=== PATIENT | male | born 1945 | race Caucasian/White ===

== ENCOUNTER 2021-07-18 07:27 | Emergency (ER) | payer MEDICARE, SELFPAY ==
[~2021-07-18] VITALS: Ht 172.7 cm; Wt 77.1 kg
[2021-07-18 07:28] VITALS: BP_SYST 136
--- NOTE | 2021-07-18 07:28 | NUR ---
Placed in room 4 . Placed on cardiac technician, blood pressure machine and pulse oximeter. To gown for exam. Side rails up.
--- NOTE | 2021-07-18 07:29 | NUR ---
Pt bib ambulance with complaint of syncopal episode this morning getting out of bed. Pt has small abrasion to top of the head. Pt states took him 10 minutes to get off the floor. Pt is from home. Pt denies pain. No trauma noted. VSS no distress at this time. Attached to monitor [facility] breathing is even and unlabored.
--- NOTE | 2021-07-18 07:30 | NUR ---
KALI Barry at bedside examining patient.
--- NOTE | 2021-07-18 07:53 | NUR ---
Lab at bedside.
--- NOTE | 2021-07-18 08:06 | NUR ---
Patient transported to radiology via wheelchair, accompanied by tech.
[2021-07-18 08:13] LABS: BASOPHILS % (AUTO) 0.3 % (0.0-2.0); EOSINOPHILS % (AUTO) 0.2 % (0.0-4.0); HEMATOCRIT 39.8 % (36-54); HEMOGLOBIN 13.1 g/dL (14.0-18.0); LYMPHOCYTES # (AUTO) 0.7 K/uL (1.0-5.5); LYMPHOCYTES % (AUTO) 4.4 % (20.5-51.5); MEAN CORPUSCULAR HEMOGLOBIN 26 pg (27-31); MEAN CORPUSCULAR HGB CONC 33 % (32-36); MEAN CORPUSCULAR VOLUME 80 fL (79.0-98.0); MONOCYTES # (AUTO) 0.8 K/uL (0.0-1.0); MONOCYTES % (AUTO) 4.9 % (1.7-9.3); NEUTROPHILS # (AUTO) 14.6 K/uL (1.8-7.7); NEUTROPHILS % (AUTO) 90.2 % (40.0-70.0); PLATELET COUNT (AUTO) 283 K/uL (130-430); RED BLOOD CELL COUNT(AUTO) 4.95 MIL/uL (4.2-6.2); RED CELL DISTRIBUTION WIDTH 15.4 % (9.0-15.0); WHITE BLOOD COUNT (AUTO) 16.1 K/uL (4.8-10.8)
[2021-07-18] MEDS ORDERED: LOSA25TA3 PO (08:13)
[2021-07-18] MEDS ORDERED: GLU500 PO (08:13)
[2021-07-18] MEDS ORDERED: CLOP75TA32 PO (08:13)
--- NOTE | 2021-07-18 08:13 | NUR ---
Medication reconciliation completed with information provided by Patient. Any prior medication reconciliation on file was reviewed and corrected.
--- NOTE | 2021-07-18 08:27 | NUR ---
Pt back from CT reattached to monitor.
--- NOTE | 2021-07-18 08:34 | NUR ---
X-ray at bedside.
[2021-07-18 08:48] LABS: ANION GAP 10 (5-15); CALCIUM 9.1 mg/dL (8.4-11.0); CHLORIDE 101 mmol/L (98-107); CREATININE 0.82 mg/dL (0.55-1.30); GLUCOSE 175 mg/dL (70-99); POTASSIUM 3.9 mmol/L (3.5-5.1); SODIUM SERUM 136 mmol/L (136-145); UREA NITROGEN, BLOOD 11 mg/dL (8-21)
[2021-07-18 08:51] LABS: PROTHROMBIN TIME 10.2 SECS (9.5-12.5)
[2021-07-18 08:54] LABS: ALANINE AMINOTRANSFERASE 31 U/L (12-78); ALBUMIN 3.4 g/dL (3.4-4.8); ASPARTATE AMINOTRANSFERASE 27 U/L (10-37); TOTAL BILIRUBIN 0.7 mg/dL (0.0-1.0)
[2021-07-18 09:05] LABS: ALCOHOL, BLOOD < 3 mg/dL (<10)
--- NOTE | 2021-07-18 09:05 | NUR ---
Pt given cup of water.
--- NOTE | 2021-07-18 09:40 | NUR ---
Family at bedside.
--- NOTE | 2021-07-18 09:47 | NUR ---
Pt given sandwich and water.
--- NOTE | 2021-07-18 10:07 | NUR ---
Covid swab collected and sent to lab.
[2021-07-18] MEDS ORDERED: ATOR-1 PO (10:13)
[2021-07-18] MEDS ORDERED: ASPI-1155 PO (10:13)
[2021-07-18] MEDS ORDERED: FLUT1DIS5 IH (10:13)
[2021-07-18] MEDS ORDERED: cefTRIAXone 1 GM in D5W 50 ML IV ONE (11:15)
[2021-07-18] MEDS ORDERED: NACL 0.9% 1,000 ML IV ONE ×2 (11:15→14:00)
[2021-07-18] MEDS ORDERED: cefTRIAXone 1 GM VIAL ONE (11:23)
--- NOTE | 2021-07-18 11:33 | NUR ---
Pt family brought emmanuel dockery al for pt. Pt eating tolerating well. No distress noted.
--- NOTE | 2021-07-18 11:38 | NUR ---
Urine collected and sent to lab.
[2021-07-18 11:59] LABS: BILIRUBIN,URINE NEGATIVE (NEGATIVE); BLOOD, URINE NEGATIVE (NEGATIVE); COLOR,URINE YELLOW (YELLOW); GLUCOSE,URINE NEGATIVE (NEGATIVE); KETONES,URINE NEGATIVE (NEGATIVE); LEUKOCYTE ESTERASE ,URINE NEGATIVE (NEGATIVE); NITRITE, URINE NEGATIVE (NEGATIVE); PH,URINE 8.5 (5.0-8.0); PROTEIN URINE NEGATIVE (NEGATIVE)
--- NOTE | 2021-07-18 12:01 | NUR ---
Spoke with [facility] () to update on pt status. [id number].
[2021-07-18 12:06] LABS: CLARITY/URINE CLEAR (CLEAR)
[2021-07-18 12:33] LABS: BARBITURATE, URINE NEGATIVE (NEG <=200); BENZODIAZEPINE, URINE NEGATIVE (NEG <=150); CANNABINOID, URINE NEGATIVE (NEG <=50); COCAINE, URINE NEGATIVE (NEG <=150); METHAMPHETAMINES SCREEN,URINE NEGATIVE (NEG <=500); OPIATE, URINE NEGATIVE (NEG <=100); PHENCYCLIDINE SCREEN,URINE NEGATIVE (NEG <=25); UR TRICYCLIC ANTIDEPRESSANTS NEGATIVE (NEG <=300); URINE AMPHETAMINE NEGATIVE (NEG <=500); URINE METHADONE NEGATIVE (NEG <=200); URINE OXYCODONE SCREEN NEGATIVE (NEG <=100); URINE PROPOXYPHENE SCREEN NEGATIVE (NEG <=300)
--- NOTE | 2021-07-18 13:59 | NUR ---
Patient to be transferred to [facility]. Is being transferred due to higher level of care. Receiving facility has accepting physician and available space. ER physician has signed transfer form. Patient or responsible green party has agreed to transfer and signed form. Patient belongings inventoried and will be sent with patient. Copy of nursing notes, lab reports, EKG, Physicians Orders and X-rays to be sent with patient. Report called to Geoff DE LA CRUZ at receiving facility. Receiving physician is Dr. Little. [facility] ETA is [id number].
--- NOTE | 2021-07-18 14:02 | NUR ---
Spoke with Magnolia to update on pt status.
[2021-07-18 14:33] VITALS: BP_SYST 148
--- NOTE | 2021-07-18 14:34 | NUR ---
Pt transferred to [facility]
== END 2021-07-18 14:34 | disposition short-term general hospital (02) ==
LOC: SED 07:27
DX: S09.90XA Unspecified injury of head, initial encounter (principal); R07.89 Other chest pain; R42 Dizziness and giddiness; D72.829 Elevated white blood cell count, unspecified; I25.10 Atherosclerotic heart disease of native coronary artery without angina pectoris; I10 Essential (primary) hypertension; E11.9 Type 2 diabetes mellitus without complications; Z20.822 Contact with and (suspected) exposure to COVID-19; Z79.84 Long term (current) use of oral hypoglycemic drugs; Z79.899 Other long term (current) drug therapy; W18.39XA Other fall on same level, initial encounter; Y93.89 Activity, other specified; Y92.89 Other specified places as the place of occurrence of the external cause; Y99.8 Other external cause status
CPT/HCPCS: 36415; 70450; 71045; 72125; 76376; 80053; 80307; 81003; 83605; 84484; 85025; 85610; 85730; 87040; 87426; 93005; 96365; 99285; G0482; J0696; J7030